=== PATIENT | male | born 1960 | race Caucasian/White ===

== ENCOUNTER → 2018-03-30 | Outpatient (REF) ==
[~2018-03-30] MED LIST: ASPI81TA94 PO; DILT-102 PO; IBU200 PO; LISI-347 PO; SOTA120T25 PO
--- NOTE | 2018-03-30 10:53 | RADIOLOGY IMAGING REPORT ---
[place]AC[place] [facility] [place] NAME: Mark Eduardo : 1960 MR: [id number] V: [id number] EXAM DATE: ORDERING PHYSICIAN: SUSANNAH MUSTAFA TECHNOLOGIST: Location: [facility] Patient: Mark Eduardo : 1960 Visit/Account:[id number] Date of Sevice: 03/30/2018 Exam type: CHEST SINGLE AP History: Examination of defines a population, prior smoker Comparison: January 13, 2016. Findings: The lungs are free of acute effusions, infiltrates or edema. Cardiac silhouette is normal in size. The trachea is midline. No cavitary lesions are seen IMPRESSION: 1. No acute cardiac pulmonary process is seen. Specifically no chest radiographic evidence of activ e tuberculosis Report Dictated By: Mary Kebede MD at 03/30/2018 10:48 AM Report E-Signed By: Mary Kebede MD at 03/30/2018 10:49 AM WSN:[id number]
== END ==
LOC: RAD 09:08
PROVIDERS: ATTEND Physician Assistant Medical
DX: Z02.89 Encounter for other administrative examinations (principal)
CPT/HCPCS: 71045